=== PATIENT | male | born 1965 | race Caucasian/White ===

== ENCOUNTER → 2016-12-15 | Day surgery (SDC) | payer BC ==
[~2016-12-15] MED LIST: BENTYL20 MG PO; FLEXERIL10 MG PO; HYDROCODON-ACE1 EAC5 PO; LIPITOR PO; PANTOPRAZOLE SO40 MG PO; PROTONIX PO; [UNRECOGNIZED DRUG - OTHER] RC
--- NOTE | ~2016-12-15 | OR ---
Unit #: [id number] #: [id number] Patient: EMMETT BRINK [id number] [address] [place], [place] [address] [id number] O MR#: [id number] NAME: EMMETT BRINK ROOM: Date of Procedure: 12/15/2016 Admission Date: 12/15/2016 Surgeon: Emre Kamara Jr., M.D. : 1965 Attending Physician: Emre Kamara Jr., M.D. Primary Care Physician: Victoria Rubin M.D. OPERATIVE REPORT INDICATIONS FOR PROCEDURE The patient is a 51-year-old white male, who has been having nausea, vomiting, diarrhea, and has not had a known past history for colon polyps with no recent scope. It was felt the patient needed upper and lower endoscopy to rule out occult ulcer disease, possible colitis, possible recurrent polyps. He is brought in this time at his request for this procedure. He understands the procedure including the risks, including that of perforation and bleeding, and consents. PREOPERATIVE DIAGNOSES Possible esophagitis, possible occult ulcer disease, possible colitis. POSTOPERATIVE DIAGNOSES On upper endoscopy, the patient was noted to have some mild non-hemorrhagic gastritis. On colonoscopy to the distal ileum, he was noted to have evidence of no specific abnormalities except internal and external hemorrhoids and tiny polyp in the 30 cm area. ANESTHESIA MAC anesthesia. PROCEDURE PERFORMED Flexible colonoscopy to the distal ileum with biopsy of a small polyp and flexible upper endoscopy with biopsy for Helicobacter pylori from the antrum. DESCRIPTION OF PROCEDURE The patient was positioned in Bird position with left side down. After being given MAC anesthesia, Olympus XQ scope was passed through the proximal esophagus. The entire esophagus was examined. There was no evidence of any significant esophagitis. No evidence of any stenosis. The scope was advanced through the GE junction and the cardia and down to the fundic and antral region of the stomach and retroflexed back up to the area of the cardia, there was no evidence of hiatal hernia present. The stomach distended well without evidence of rigidity. No evidence of any gastric ulcer disease. The scope was then advanced down the prepyloric region through the pylorus into the duodenal bulb and down to the second portion of the duodenum. The entire duodenal portion examination was within normal limits. The scope was then slowly removed. The patient repositioned for colonoscopy. Digital rectal examination was performed, which revealed no palpable mass or tenderness. No blood or stool within the rectal ampulla. Prostate was normal by palpation. He was noted to Unit #: [id number] #: [id number] Patient: EMMETT BRINK have some internal-external hemorrhoids. Prostate was normal by palpation. The colonoscope was then advanced into the rectum and retroflexed back after the entire rectum was checked with no evidence of any abnormalities. The scope was straightened and advanced up in the rectosigmoid, up in the sigmoid, where there was a small 0.5 to 1 mm polyp. It was biopsied once without bleeding and sent for pathology. The scope was then advanced around the descending colon, around the splenic flexure and the transverse colon, around hepatic flexure and ascending colon, down in the area of the cecum. The light from the tip of the scope could be seen transilluminating through right lower quadrant abdominal wall area. The scope was advanced up the distal ileum approximately 10 to 12 inches. There was no evidence of any ileitis or inflammatory bowel disease. The scope was slowly removed. There were no tumors except for the one small polyp. No other significant polyps, no cancer, no AVMs, no evidence of any colitis or diverticulosis or diverticulitis. The caliber of the colon appeared normal throughout without evidence of narrowing or obstruction. The scope was removed. The patient tolerated the procedure well and discharged in satisfactory condition. Dictated by... Emre Kamara Jr., M.D. KATHERINE/hannah TD: 12/15/2016 16:53 JOB #: [id number] OPERATIVE REPORT Page 1 of 1 X Emre Kamara MD X PROCEDURE OPERATIVE NOTE
== END | disposition home or self-care (01) ==
LOC: COPS 10:21
DX: K63.5 Polyp of colon (principal); K29.70 Gastritis, unspecified, without bleeding; K64.4 Residual hemorrhoidal skin tags; K64.8 Other hemorrhoids; K21.9 Gastro-esophageal reflux disease without esophagitis; F17.210 Nicotine dependence, cigarettes, uncomplicated; M13.0 Polyarthritis, unspecified; G89.29 Other chronic pain; E78.00 Pure hypercholesterolemia, unspecified; E78.5 Hyperlipidemia, unspecified; K58.9 Irritable bowel syndrome, unspecified; F32.9 Major depressive disorder, single episode, unspecified; Z86.010 Personal history of colon polyps; Z79.899 Other long term (current) drug therapy; Z79.891 Long term (current) use of opiate analgesic; Z98.890 Other specified postprocedural states
CPT/HCPCS: 87077; 88305; J2250

== ENCOUNTER → 2017-01-14 | Day surgery (SDC) | payer BC ==
--- NOTE | ~2017-01-14 | OR ---
Unit #: [id number] #: [id number] Patient: EMMETT BRINK [id number] [address] [place], [place] [address] [id number] O MR#: [id number] NAME: EMMETT BRINK ROOM: Date of Procedure: 01/14/2017 Admission Date: 01/14/2017 Surgeon: Emre Kamara Jr., M.D. : 1965 Attending Physician: Emre Kamara Jr., M.D. Referring Physician: Emre Kamara Jr., M.D. Primary Care Physician: Victoria Rubin M.D. OPERATIVE REPORT INDICATION FOR PROCEDURE The patient is a 51-year-old white male, who recently presented to the office complaining of pain in the left inguinal area with possible recurrent left inguinal hernia. He has had previous extraperitoneal hernia repairs by Dr. Pedroza years ago and on examination, did have a palpable mass in the left inguinal area near his previous repair compatible with a recurrent hernia. He also had a palpable mass on the right side and was noted to have a chronic incarcerated umbilical hernia. It was felt all 3 of these should be fixed open. He is brought in this time for this procedure at his request. He understands the procedure including the risks, including that of infection, recurrence, chronic pain, nerve injury, entrapment, and injury to the spermatic cord and consents. PREOPERATIVE DIAGNOSIS Recurrent bilateral inguinal hernias with a chronic incarcerated umbilical hernia. POSTOPERATIVE DIAGNOSIS Recurrent bilateral inguinal hernias with a chronic incarcerated umbilical hernia, noting direct hernias on the right and the left. ANESTHESIA General with LMA and 0.5% Marcaine with epinephrine locally. PROCEDURES PERFORMED Bilateral inguinal hernia repairs using the plug and patch technique with reduction and repair of his umbilical hernia using Ventralex mesh and primary closure of the fascial defect. DESCRIPTION OF PROCEDURE The patient was positioned in supine position. After being anesthetized, he was prepped and draped in routine fashion for bilateral inguinal hernia repairs with an umbilical hernia repair. The transverse incision was made over the left inguinal canal approximately 3 to 4 inch in length after the area was locally blocked with 0.5% Marcaine with epinephrine. This was carried down through the Camilo and Camper fascia and the external oblique fascia. The fibers of external oblique were split from the external ring up past the internal ring. Hemostasis was achieved with Bovie cautery in the subcutaneous tissue and the cord structures were then elevated from the pubic tubercle and freed back to the internal ring. There was a direct inguinal hernia present with no evidence of any indirect sac Unit #: [id number] #: [id number] Patient: EMMETT BRINK present. Redundant portion of tissue that extended up through the fascia was then excised with a Bovie cautery and large plug was placed after being soaked in antibiotic solution in the defect and this was sutured with interrupted 0 Ethibond sutures. The patch was placed over the top, over the floor of the inguinal canal, and sutured in place with interrupted 0 Ethibond sutures from the pubic tubercle up around the cord structures into the internal ring as routine. After the wound was irrigated, hemostasis was achieved with Bovie cautery. The ilioinguinal nerve and cord structures were replaced back beneath the external oblique fascia, which was then closed with a continuous 3-0 Vicryl suture. Wounds were irrigated. After hemostasis achieved with Bovie cautery, the Cmailo and Camper fascia was approximated with interrupted 3-0 Vicryl sutures. Skin edges approximated with stainless-steel skin clips and skin stapling device. An exact procedure was performed on the right side with a direct hernia being encountered and being repaired with a medium plug and patch technique, but the same basic procedures the one on the left. After this was complete, a keyhole incision was made around the umbilicus extending up over the top of it and to the sides. This was carried down through the dermis through subcutaneous tissue down to the area of the hernia. The umbilicus was freed from the tissue beneath it and there was an incarcerated umbilical hernia present and the tissue was freed up circumferentially at the base with a Bovie cautery and reduced back into the preperitoneal space. A small Ventralex mesh was placed in the preperitoneal space up against the anterior abdominal wall and the strap sutured to the fascia with interrupted 0 Ethibond sutures. The straps were excised. The fascial defect was then closed over the top of the mesh with interrupted 0 Ethibond sutures. The wound was irrigated with antibiotic solution. After hemostasis achieved with Bovie cautery, the umbilicus was tacked to the fascia with 3-0 Vicryl suture. The subcutaneous tissue approximated with interrupted 3-0 Vicryl sutures. Skin edges were approximated with stainless-steel skin clips and skin stapling device. Sterile dressings were applied externally. Estimated blood loss less than 50 mL. The patient received less than 2000 mL crystalloid solution during the procedure. Sponges and instrument counts were correct x3. No drains used. No complications. The patient was taken to the recovery room with stable vital signs in satisfactory condition. Dictated by... Emre Kamara Jr., M.D. JMB/hannah TD: 01/14/2017 11:53 JOB #: [id number] CC: Victoria Rubin M.D. OPERATIVE REPORT Page 1 of 1 X Emre Kamara MD X PROCEDURE OPERATIVE NOTE
== END | disposition home or self-care (01) ==
LOC: CSUR 06:51
DX: K40.21 Bilateral inguinal hernia, without obstruction or gangrene, recurrent (principal); K42.0 Umbilical hernia with obstruction, without gangrene; K21.9 Gastro-esophageal reflux disease without esophagitis; I10 Essential (primary) hypertension; E78.5 Hyperlipidemia, unspecified; J44.9 Chronic obstructive pulmonary disease, unspecified; G89.29 Other chronic pain; M54.5 Low back pain; M13.0 Polyarthritis, unspecified; F17.210 Nicotine dependence, cigarettes, uncomplicated; Z79.899 Other long term (current) drug therapy; Z98.890 Other specified postprocedural states
CPT/HCPCS: C1781; J0690; J1170; J2250; J2270; J2405; J3010